=== PATIENT | male | born 1955 | race Caucasian/White ===

== ENCOUNTER 2023-07-04 06:57 | Observation (INO) ==
--- NOTE | 2023-07-04 08:27 | History & Physical Report ---
Date of Service July 04, 2023 Assessment & Plan (1) Wound infection after surgery: Plan: 60-year-old male with cellulitis and likely abscess and old appendectomy incision site. Plan for incision and drainage of abdominal wall abscess Risks of the procedure were discussed to include but not limited to bleeding, infection, prolonged healing, damage surrounding structures, need for future more extensive surgery, recurrence, and the risk of anesthesia History of Present Illness Primary Care Provider: NO PCP 68-year-old male here for incision and drainage of subcutaneous abscess. Patient had an appendectomy in the 90s and has had chronic drainage ever since. Dr. Olivares attempted to remove stitch in the past but was unsuccessful. Drainage resolved. For the past week or so he has had increasing redness and pain from the area. Had some spontaneous drainage a few days ago. He presented to the clinic yesterday where he had moderately significant cellulitis and some minimal purulent drainage from the wound. An ultrasound was performed and showed subcutaneous fluid collection with cellulitis. Allergies Allergy/AdvReac Type Severity Reaction Status Date / Time bee venom protein (honey bee) Allergy Severe . Verified 07/03/23 15:15 UNKNOWN ANESTHESIA Allergy Unknown "LUNGS Uncoded 07/03/23 15:15 DIDN'T WORK." Past Med/Surg History Surgical History (Updated 07/04/23 @ 08:33 by Veronica Rodriguez RN) History of appendectomy Social History Smoking Status: Never smoker Second Hand Exposure: Yes; Do You Dip or Chew Tobacco: No; Tobacco Cessation Education Requested by Patient: No Hx Alcohol Use: Yes Alcohol type: hard liquor Hx Substance Use: No Preferred Language: Bengali Communication Ability: Effective Maritime Officer Required: No Beliefs That Will Affect Care: None Current Living Situation: Spouse Feels Safe at Home: Yes Safety Concerns: Feels Safe At This Time Assistive Devices: None Review of Systems Review of Systems: All systems reviewed & are unremarkable except as noted in HPI & below Physical Exam Constitutional: WD/WN, vitals as above + obese Respiratory: normal respiratory effort, lungs clear to auscultation Cardiovascular: RRR, no murmur, no edema Gastrointestinal (Abdomen): Inspection/Auscultation: + abdominal surgical scar (Cellulitis extending superior laterally from incision. Small opening) Percussion/Palpation: + abdomen tender (Around incision) and abdomen soft; no guarding and abdomen not rigid Results & Data Results & Data Laboratory Results WBC 12 Diagnostic Findings [place], [place] [phone] Ultrasound Report Patient:KATHY MORA Admit Date:07/03/23 MR#:[id number] Address[address] Acct ID:[id number] Address2: Date:1955 [facility] Zip:[place] [address] Age:68 Location:[place] Sex:M Room/Bed: Att Phy:Jeramy Olivares MD,FACS Diagnosis:right abdomen- old appy site Karo Phy:PCP,NO Service Date:07/03/23 Fam Phy: Interpreting Phy:Aiden Taylor MDAdmit Phy: Ordering Phy:Jeramy Olivares MD,FACS cc: Ken Hartley, DO~ ULTRASOUND OF THE ABDOMINAL WALL CLINICAL HISTORY: Drainage from a right lower quadrant incision site. Remote appendectomy. COMPARISON STUDY: Abdominal CT dated 04/05/2011. FINDINGS: Real-time grayscale and color flow sonography of the right lower quadrant abdominal wall is performed at the site of interest. There is nonspecific soft tissue thickening and hyperemia at the site of interest. There is a complex fluid collection suggested along the superior aspect of the incision at the site of erythema and pain. This measures 7.4 x 2.4 x 5.9 centimeter, again with peripheral hyperemia. This is located at approximately 2 cm deep to the dermal surface. It is unclear if this is intra or extraperitoneal. IMPRESSION: 1. Soft tissue thickening and hyperemia is seen at the incision site suggesting cellulitis. 2. There is a complex fluid collection suggested along the superior margin of the incision at the site of erythema and pain. The appearance favors abscess, and it is unclear if this is intra or extraperitoneal. An abdominal CT with oral and IV contrast is recommended for further assessment. PG Care Time/CCT Total # of Minutes Spent Total Time Spent with Patient: Total time spent is greater than 50% in coordination of care (as documented) at patient's floor/unit and/or counseling patient: Coding Level of Care Code 12601 INT INP/OBS CARE 2/55MIN Diagnoses Wound infection after surgery T81.49XA
[2023-07-04] MEDS ORDERED: ceFAZolin 2000MG 2,000 MG/15 ML SYR IV ONE (08:48)
[2023-07-04] MEDS ORDERED: LACTATED RINGER'S 1,000 ML IV SCH (09:00)
[2023-07-04] MEDS ORDERED: BUPIVACAINE 0.5 % 5 MG/1 ML MPF 30ML VIAL ONE (09:40)
[2023-07-04] MEDS ORDERED: ONDANSETRON INJ 2 MG/ML 2 ML VIAL ONE (09:46)
[2023-07-04] MEDS ORDERED: LIDOCAINE 2% 2 ML VIAL/AMP(20MG/ML) INFIL ONE (09:46)
[2023-07-04] MEDS ORDERED: fentaNYL citrate PF 100 MCG/2 ML VIAL ONE ×2 (09:46→10:38)
[2023-07-04] MEDS ORDERED: DEXAMETHASONE SOD INJ 4 MG/ML VIAL ONE (09:46)
[2023-07-04] MEDS ORDERED: MIDAZOLAM HCL 1 MG/ML 2ML VIAL ONE (09:46)
[2023-07-04] MEDS ORDERED: ROCURONIUM BROMIDE 10 MG/ML 5 ML VIAL IV ONE (09:46)
[2023-07-04] MEDS ORDERED: PROPOFOL IV EMULSION 10 MG/ML 20 ML VIAL IV ONE (09:46)
--- NOTE | 2023-07-04 09:47 | Anesthesiology Consultation ---
Date of Service July 04, 2023 Assessment & Plan Chart Review Chart Review: Acceptable Risk for Surgery Consults Requested none History Surgery Operation Date: 07/04/23 09:10 Proposed Procedures p Incision and Drainage Appendectomy Incision - Ken Hartley, , FACS Height/Weight Height: 5 ft 8 in Weight: 103.2 kg Allergies Allergy/AdvReac Type Severity Reaction Status Date / Time bee venom protein (honey bee) Allergy Severe . Verified 07/03/23 15:15 UNKNOWN ANESTHESIA Allergy Unknown "LUNGS Uncoded 07/03/23 15:15 DIDN'T WORK." Medications Active Medications Generic Name Dose Route Start Last Admin Trade Name Freq PRN Reason Stop Dose Admin Lactated Ringer's 1,000 mls @ 0 mls/hr 07/04/23 09:00 07/04/23 08:44 Lr IV 08/03/23 08:59 15 mls/hr .Q0M CHARITY Administration KVO NPO Date Last Intake of Fluids: 07/03/23 Time Last Intake of Fluids: 22:00 Date Last Intake of Solids: 07/03/23 Time Last Intake of Solids: 21:00 Past Surgical History Surgical History (Updated 07/04/23 @ 08:33 by Veronica Rodriguez RN) History of appendectomy Social History Smoking Status: Never smoker Do You Dip or Chew Tobacco: No Hx Alcohol Use: Yes Alcohol type: hard liquor alcohol intake frequency: a few times a month Hx Substance Use: No Physical Exam Vital Signs Last Vital Signs Temp 36.6 C 07/04/23 08:08 Pulse 91 H 07/04/23 08:08 Resp 20 07/04/23 08:08 BP 207/105 H 07/04/23 08:08 Pulse Ox 97 07/04/23 08:08 O2 Del Method Room Air 07/04/23 08:08 Constitutional WD/WN, vitals as above + obese Respiratory normal respiratory effort, lungs clear to auscultation Cardiovascular RRR, no murmur, no edema Gastrointestinal (Abdomen) Inspection/Auscultation: + abdominal surgical scar (Cellulitis extending superio r laterally from incision. Small opening) Percussion/Palpation: + abdomen tender (Around incision) and abdomen soft; no guarding and abdomen not rigid
[2023-07-04] MEDS ORDERED: ATROPINE SULFATE 0.1 MG/ML 10ML SYR IV PRN (09:49)
[2023-07-04] MEDS ORDERED: ePHEDrine sulfate 50 MG/ML AMP IV PRN (09:49)
[2023-07-04] MEDS ORDERED: DexMEDEtomidine HCL IV 100 MCG/ML VIAL IV ONE (10:15)
[2023-07-04] MEDS ORDERED: SUCCINYLCHOLINE CHLORIDE 20 MG/ML 10 ML VIAL IV ONE (10:18)
[2023-07-04] MEDS ORDERED: SUGAMMADEX SODIUM 200 MG/2 ML VIAL IV ONE (10:42)
--- NOTE | 2023-07-04 10:54 | Operative Report ---
PG Post Operative Report Pre & Post Diagnosis Operation Date: 07/04/23 09:10 Pre-Op Diagnosis: Abdominal wall abscess at prior appendectomy scar Postop diagnosis: Abdominal wall abscess a prior appendectomy scar I identified the patient and participated in the time-out.: Yes Procedure Operation Date: 07/04/23 09:10 Actual Procedures p Incision and Drainage abdominal wall abscess at prior appendectomy Incision(Right) - Ken Hartley DO, IKKA Surgeon Ken Hartley DO, KIKA Loom Checker Kory Elliott Estimated Blood Loss 5 Findings Consistent with Post-Op Diagnosis Incision and drainage of abdominal wall soft tissue abscess superior lateral to prior appendectomy incision. Approximately 40 cc of purulent drainage drained. Hemostasis achieved, wound packed. Specimens Wound culture Anesthesia Type General Complications none Disposition Accompanied Patient To Recovery: No Disposition: Recovery Room Indications 68-year-old male with history of prior appendectomy and evaluation for stitch abscess in the past he presented to the clinic yesterday with cellulitis and likely abscess. Ultrasound confirmed presence of abscess. Plan for incision and drainage of abdominal wall abscess. The risks of the procedure were discussed, all questions were answered, and the patient agreed to proceed with surgery as planned. Description of Procedure The patient was properly identified, consented, and taken to the operating room where he was placed in the supine position. General tracheal anesthesia was induced. SCDs and a safety belt were placed. Preoperative antibiotics were administered. The patient's abdomen was prepped and draped in the standard sterile fashion. Surgical timeout was performed and all parties were in agreement that this was the correct patient and procedure to be performed and we continued as planned. Local anesthetic was injected along the skin incision. A elliptical incision was made starting at the lateral portion of the incision where there was a small opening and some drainage and extended superior laterally. This was deepened down through the subcutaneous tissue with electrocautery. The abscess cavity was entered and approximately 40 cc of purulent drainage was expressed. This was sent for culture. There is significant cellulitis surrounding this area with some inflamed fat, but no other fluid collections were identified. The wound was irrigated and hemostasis achieved. The wound was packed with saline soaked Kerlix gauze. Dressing was placed over the incision. The patient was extubated in the operating room and taken to the PACU where he recovered without apparent incident. All sponge, instrument and needle counts were correct at the conclusion of the procedure. The patient tolerated the procedure well. The nurse practitioner was present and scrubbed for the entire the case. She was critical in positioning the patient, prepping and draping, retraction and exposure, placement of the dressings. I attest to the content of the Intraoperative Record and any orders documented therein. Any exceptions are noted below.
[2023-07-04] MEDS: fentaNYL citrate PF 100 MCG/2 ML VIAL IV PRN ×3 (11:18→11:28)
--- NOTE | 2023-07-04 12:03 | Electrocardiogram Report ---
Test Reason : Blood Pressure : / mmHG Vent. Rate : 085 BPM Atrial Rate : 085 BPM P-R Int : 146 ms QRS Dur : 096 ms QT Int : 390 ms P-R-T Axes : 051 041 058 degrees QTc Int : 464 ms Normal sinus rhythm Normal ECG When compared with ECG of 10-JUN-2010 06:20, Borderline criteria for Inferior infarct are no longer Present T wave inversion no longer evident in Inferior leads Confirmed by Earle Armstrong ([id number]) on 07/04/2023 12:03:16 PM Referred By: Ken Hartley Confirmed By:Neville Armstrong
--- NOTE | 2023-07-04 12:13 | Anesthesiology Progress Note ---
Date of Service July 04, 2023 Anesthesia Post Procedure Vital Signs Vital Signs: Temp Pulse Pulse Resp BP Pulse Ox O2 Del Method 07/04/23 11:45 36.2 C L 72 15 161/91 H 96 Nasal Cannula 07/04/23 11:35 76 15 176/100 H 96 Nasal Cannula 07/04/23 11:25 79 17 156/91 H 95 Nasal Cannula 07/04/23 11:15 85 16 151/90 H 99 Oxymask 07/04/23 11:05 36.0 C L 86 18 160/97 H 98 Oxymask 07/04/23 08:08 36.6 C 91 H 20 207/105 H 97 Room Air O2 Flow Rate 07/04/23 11:45 2 07/04/23 11:35 2 07/04/23 11:25 2 07/04/23 11:15 5 07/04/23 11:05 5 07/04/23 08:08 Pain Intensity Right Lower Abdomen: Pain Intensity: 6 Transfer of Care Handoff Completed per policy Notes Mental Status: alert / awake / arousable Patient Amnestic to Procedure: Yes Nausea / Vomiting: adequately controlled Pain: adequately controlled Airway Patency, RR, SpO2: stable & adequate BP & HR: stable & adequate Hydration State: stable & adequate Anesthetic Complications: no major complications apparent and Pt Satisfied with anesthetic care
[2023-07-04] MEDS ORDERED: MoRPHine SULFATE 4 MG/ML 1 ML CARP\\VIAL IV PRN (12:19)
[2023-07-04] MEDS ORDERED: ONDANSETRON INJ 2 MG/ML 2 ML VIAL IV PRN (12:19)
[2023-07-04] MEDS ORDERED: oxyCODONE/ACETAMINOPHEN 5mg/325mg TAB PO PRN ×2 (12:19)
[2023-07-04] MEDS ORDERED: MoRPHine SULFATE 2 MG/ML CARP IV PRN (12:19)
[2023-07-04] MEDS ORDERED: ACETAMINOPHEN 325 MG TAB PO PRN (12:19)
[2023-07-04] MEDS ORDERED: PIPER/TAZO 4.5g in D5W MINI-B 100 ML IV ONE (12:30)
[2023-07-04] MEDS: PIPERACILLIN/TAZOBACTAM 4.5 GM in DEXTROSE 5% MINI-B 100 ML IV SCH (17:20)
[2023-07-04] MEDS ORDERED: hydrALAZINE 10 MG TAB PO STA (22:40)
--- NOTE | 2023-07-04 22:45 | Communication Note ---
Date of Service: July 04, 2023 I was called by RN at approximately 10:23 PM on 07/04/2023 stating the patient had an elevated blood pressure. On the patient's most recent reading his blood pressure is noted to be 189/101. RN notes that patient's blood pressure has been persistently elevated throughout the day. I reported the patient's bedside within 10 minutes of receiving this call. I discussed with the patient and he specifically denies any headache, visual changes, chest pain, or shortness of breath. I discussed with the patient his elevated blood pressure and he reports that his blood pressure has been elevated for a "long time.". Patient says that he previously followed with Dr. Goldstein for primary care but he believes that this physician has retired. He is inte rested in establishing care with an alternative physician and the [facility] group. I did discuss with the patient that his blood pressure is elevated to the point where I believe treatment is indicated. I have suggested the patient we start him on pharmacologic treatment for this condition. He is in agreement. I discussed with the hospitalist for [facility] physician group and requested a consultation to help with the patient's hypertension management. They have suggested we initiate hydralazine 10 mg p.o. now (they note that oral medicines would be acceptable as the patient is asymptomatic). They will see the patient in consultation and make additional recommendations about what dose and medication to send patient home on.
--- NOTE | 2023-07-04 23:07 | Hospitalist Consultation ---
Date of Consultation July 04, 2023 Assessment & Plan (1) Hypertensive urgency: 68 yo male with PMHx appendectomy. Earlier today underwent I&D of abdominal wall abscess at prior appendectomy incision. Hospital team consulted for elevated blood pressures. #Hypertensive Urgency -consulted with BP reading of 189/101 following surgery. Previous h/o HTN but not on medication for many years. Asymptomatic. -administered po hydralazine 10mg x1 - will cont. to monitor BP overnight -will start losartan 50mg qam going forward - kidney function wnl -pt should establish with PCP for further management- recommend bmp check in 2-4 wks after starting ARB #Post op #Wound Infection -s/p I&D of abdominal wall abscess at prior appendectomy incision. Management per gen surg. Cont. zosyn. Pain control. #H/o NC w/stent -previously on plavix/asa. He has not been on these for many years. Recommend PCP f/u after discharge. #H/o HLD -previously on atorvastatin. He did have myalgias with this medication so stopped taking it. Recommend PCP f/u after discharge. -check lipids DVT ppx: SCDs s/p surgery FEN/GI: regular Code Status: full Dispo: med surg Thank you for allowing us to participate in this patient's care. Hospital team will continue to follow. (2) Wound infection after surgery: (3) History of heart artery stent: (4) HLD (hyperlipidemia): History of Present Illness Reason for Consultation: elevated BP Attending Physician: Ken Hartley DO, FACS History of Present Illness 68 yo male with PMHx NC s/p stent, HLD, HTN, and appendectomy. Earlier today underwent I&D of abdominal wall abscess at prior appendectomy incision. Hospital team consulted for elevated blood pressures. Patient states he is doing well after surgery and is asymptomatic at this time. He states that his blood pressure typically does run high as he used to be on blood pressure medication many years ago. He also used to be on few other medications again many years ago for his comorbidities however has not had a PCP for quite some time. He is currently on no medications at home. His and mother established with Dr. Paul Gunderson. He is looking to establish soon. He is amenable to starting daily blood pressure medication following discharge from the hospital. Allergies Allergy/AdvReac Type Severity Reaction Status Date / Time bee venom protein (honey bee) Allergy Severe . Verified 07/04/23 17:46 UNKNOWN ANESTHESIA Allergy Unknown "LUNGS Uncoded 07/04/23 17:46 DIDN'T WORK." Home Medications Medication Instructions Recorded Confirmed Type No Known Home Medications 07/04/23 07/04/23 History Patient History Surgical History (Updated 07/05/23 @ 01:25 by Darryl Anne DO) History of appendectomy History of incision and drainage (07/04/23) Incision and Drainage abdominal wall abscess at prior appendectomy Incision(Right) - Ken Hartley DO, FACS Social History Smoking Status: Never smoker Second Hand Exposure: Yes; Do You Dip or Chew Tobacco: No; Tobacco Cessation Education Requested by Patient: No Hx Alcohol Use: Yes Alcohol type: hard liquor Hx Substance Use: No Preferred Language: Ghanaian Communication Ability: Effective Property Administrator Required: No Beliefs That Will Affect Care: None Current Living Situation: Spouse Other Information That Helps Us Care for You: No Feels Safe at Home: Yes Safety Concerns: Feels Safe At This Time Assistive Devices: Denture - Upper, Glasses and Hearing Aid - Bilateral Assistive Devices Comment: hearing aids not here, does not wear them often Review of Systems Review of Systems: All systems reviewed & are unremarkable except as noted in HPI & below Physical Exam Physical Exam: Constitutional: in no acute distress, pleasant and normal affect, intact memory. AOx3. Vitals as above. HEENT: No scleral injection or discharge.Moist mucous membranes. Neck: Supple without lymphadenopathy or thyromegaly. Trachea midline. Lungs: Clear to auscultation bilaterally with good effort. No wheezes/rales/r honchi. Cardiac: Regular rate and rhythm. No murmurs.No lower extremity edema. 2+ distal peripheral pulses. Abdomen: Bowel sounds present. Soft, nontender, and nondistended.No guarding. MSK: No cyanosis or clubbing. Extremities motor strength 5/5. Skin: Bandages present over surgical site. Neurologic: no focal deficits Results & Data Results & Data Vital Signs (Past 12 Hours) Vital Signs Temp Pulse Pulse Resp BP BP Pulse Ox 07/04/23 21:48 189/101 H 07/04/23 19:24 36.7 C 86 18 192/91 H 94 07/04/23 15:05 36.7 C 79 20 191/100 H 96 07/04/23 12:42 36.4 C L 72 18 163/83 H 98 07/04/23 13:10 36.2 C L 76 18 177/98 H 97 07/04/23 12:23 07/04/23 12:10 36.3 C L 77 18 165/93 H 97 07/04/23 11:45 36.2 C L 72 15 161/91 H 96 07/04/23 11:35 76 15 176/100 H 96 07/04/23 11:25 79 17 156/91 H 95 07/04/23 11:15 85 16 151/90 H 99 O2 Del Method O2 Flow Rate 07/04/23 21:48 07/04/23 19:24 Room Air 07/04/23 15:05 Room Air 07/04/23 12:42 Nasal Cannula 2 07/04/23 13:10 Nasal Cannula 3 07/04/23 12:23 Nasal Cannula 3 07/04/23 12:10 Nasal Cannula 3 07/04/23 11:45 Nasal Cannula 2 07/04/23 11:35 Nasal Cannula 2 07/04/23 11:25 Nasal Cannula 2 07/04/23 11:15 Oxymask 5 Resident Activity Tracking Resident Involvement: Resident Care Provided Care Provided: Adult Hospital Medicine
[2023-07-05] MEDS: PIPERACILLIN/TAZOBACTAM 4.5 GM in DEXTROSE 5% MINI-B 100 ML IV SCH ×2 (01:29→10:06)
[2023-07-05 07:05] LABS: Basophils # (auto) 0.04 K/uL (0.00-0.20); Basophils % (auto) 0.3 %; Eosinophils # (auto) 0.12 K/uL (0.00-0.50); Hematocrit (blood only) 42.3 % (42.0-52.0); Hemoglobin 14.1 g/dl (14.0-18.0); Immature Granulocytes # (auto) 0.06 K/uL (0.01-0.20); Immature Granulocytes % (auto) 0.5 %; Lymphocytes # (auto) 2.97 K/uL (1.20-3.40); Lymphocytes % (auto) 25.1 %; Mean Corpuscular Hemoglobin 30.3 pg (25.0-34.0); Mean Corpuscular Hgb Conc 33.3 g/dL (32.0-36.0); Mean Corpuscular Volume 90.8 fL (80.0-100.0); Mean Platelet Volume 10.3 fL (9.4-12.4); Monocytes # (auto) 0.96 K/uL (0.11-0.59); Monocytes % (auto) 8.1 %; Neutrophils # (auto) 7.68 K/uL (1.40-6.50); Platelet Count 260 K/uL (130-400); RDW Coefficient of Variation 13.2 % (11.5-14.5); RDW Standard Deviation 43.9 fL (36.4-46.3); Red Blood Count 4.66 M/uL (4.70-6.10); White Blood Count 11.83 K/ul (4.8-10.8)
[2023-07-05 07:19] LABS: BUN Creatinine Ratio 15.1 (10-20); Calcium 9.4 mg/dl (8.6-10.3); Chol HDL Ratio 4.5 (0-5); Creatinine Clr Calc Pharmacy 95.7 ml/min; Est GFR (African American) 103.3 ml/min; Est GFR (Non-African American) 89.1 ml/min
--- NOTE | 2023-07-05 08:23 | Hospitalist Progress Note ---
Date of Service July 05, 2023 Assessment & Plan (1) Hypertensive urgency: Plan: 68 yo male with PMHx appendectomy. Earlier today underwent I&D of abdominal wall abscess at prior appendectomy incision. Hospital team consulted for elevated blood pressures. #Hypertensive Urgency Consulted with BP reading of 189/101 following surgery. Previous h/o HTN but not on medication for many years. Asymptomatic. Administered po hydralazine 10mg x1, started losartan 50mg this morning for BP 177/92 Changed diet to AHA, rec low salt diet at discharge Given patient w/ hx OR and stent, started metoprolol tartrate 25mg BID while inpatient, can change to succinate at discharge vs having PCP change in follow up. Rec to take additional metoprolol if significant elevations on home BP check but otherwise would hold off losartan for now to prevent hypotension but suspect given long standing HTN may require 2 agents eventually Would also start daily baby aspirin at dc. CM to arrange f/u with PCP for ongoing management with Dr Miller in [place] per patient request (2) Wound infection after surgery: Plan: #Post op wound infection from appy done in , ongoing drainage on/off since that time POD#1 s/p I&D of abdominal wall abscess at prior appendectomy incision. Management per gen surg. GS from OR cx w/ gram positive cocci, cx pending IV ZOsyn WBC trending down, afebrile Hgb stable on repeat Pain control/bowel regimen/PT/OT per primary service DVT proph: SCDs ordered Dispo per primary if wanting to dc today on empiric coverage vs finalized cultures (3) History of heart artery stent: Plan: #H/o OR w/stent -previously on plavix/asa. Reported likely in early (prior to his father passing) He has not been on these for many years. Metoprolol initiated as above, recs for baby aspirin when ok w/ surgery.Statin discussion deferred to f/u as below. A1c pending w/ AM labs --> 6.4 --> rec adjustment of diet/starting metformin in follow up CM arranging PCP f/u as above (4) HLD (hyperlipidemia): Plan: #H/o HLD -previously on atorvastatin. He did have myalgias with this medication so stopped taking it. Recommend PCP f/u after discharge. -check lipids --> Chol 203, LDL 138, HLD 45, TRG 101. Likely benefit from starting statin but given above will defer ongoing discussion to PCP about starting. Encourage AHA diet at d/c --> Patient declining statin due to myalgias in the past. Discussed possible zetia w/ PCP vs taking statin at night. He would like to defer further discussions to follow up Plan Thank you for allowing hospitalist service to participate in the care of Mr Camarillo. Hospitalist service will follow along in am if remaining overnight/monitor BPs/adjustment as needed. Please call with any questions/concerns. Admission and Anticipated Discharge Date Admission Date: July 04, 2023 Supervising Physician Co-Signing Physician Notes The patient was not seen by me. The chart was reviewed. Case discussed with BRYANT Nolasco. Agree with assessment and plan Subjective Eval this morning, doing great. BP elevated but no CP/SOB. Prior OR believes in earlier , discussed PCP f/u being arranged and started metoprolol. Rec'd once surgery ok would be on baby aspirin. Labs stable, cxs pending. He reports the worsened pain/drainage after lifting 50lb bag of rice 10 weeks ago, worsened over past week. Pain much improved/resolved. Slightly tender around incision, RN to change dressing this morning. He is inquiring about dc today as he is bored. Discussed would let that up to primary but suspect may want to finalize cultures prior. He is agreeable to stay if needed but happy if able to be discharged today. Messaged primary of such. Physical Exam Physical Exam: Constitutional: WN/WD obese male sitting up in bed, NAD HEENT head atraumatic, normocephalic, mmm, trachea midline Resp; CTA, no w/c/r, on room air CV: RRR, no significant mrg, no calf edema GI: +BS throughout, dressing to RLQ c/d/i, incision noted, some purulent drainage on 4x4. slightly tender appropriately around incision but no guarding/rigidity no [place] MSK/Neuro: no focal deficit, no slurred speech, strength equal bilaterally Psych: AOx3, cooperative and pleasant with exam Results & Data Results & Data Vital Signs (Past 12 Hours) Vital Signs Temp Pulse Pulse Resp BP BP Pulse Ox 07/05/23 07:50 36.8 C 86 20 177/92 H 96 07/05/23 05:00 36.9 C 76 18 182/117 H 96 07/05/23 01:34 36.9 C 83 17 186/101 H 175/100 H 95 07/04/23 21:48 189/101 H O2 Del Method 07/05/23 07:50 Room Air 07/05/23 05:00 Room Air 07/05/23 01:34 Room Air 07/04/23 21:48 Laboratory Results 07/05/23 Range/Units 06:30 WBC 11.83 H (4.8-10.8) K/ul RBC 4.66 L (4.70-6.10) M/uL Hgb 14.1 (14.0-18.0) g/dl Hct 42.3 (42.0-52.0) % MCV 90.8 (80.0-100.0) fL MCH 30.3 (25.0-34.0) pg MCHC 33.3 (32.0-36.0) g/dL RDW Std Deviation 43.9 (36.4-46.3) fL RDW Coeff of Arnulfo 13.2 (11.5-14.5) % Plt Count 260 (130-400) K/uL MPV 10.3 (9.4-12.4) fL Immature Gran % (Auto) 0.5 % Neut % (Auto) 65.0 % Lymph % (Auto) 25.1 % [place] % (Auto) 8.1 % Eos % (Auto) 1.0 % Baso % (Auto) 0.3 % Neut # (Auto) 7.68 H (1.40-6.50) K/uL Lymph # (Auto) 2.97 (1.20-3.40) K/uL [place] # (Auto) 0.96 H (0.11-0.59) K/uL Eos # (Auto) 0.12 (0.00-0.50) K/uL Baso # (Auto) 0.04 (0.00-0.20) K/uL Immature Gran # (Auto) 0.06 (0.01-0.20) K/uL Sodium 138 (136-145) mmol/L Potassium 4.0 (3.5-5.1) mmol/L Chloride 101 (98-107) mmol/L Carbon Dioxide 31 (21-32) mmol/L Anion Gap 6 (3-11) BUN 13 (6-23) mg/dl Creatinine 0.86 (0.6-1.4) mg/dl Est Cr Clr Drug Dosing 95.7 ml/min Est GFR ( Amer) 103.3 ml/min Est GFR (Non-Af Amer) 89.1 ml/min BUN/Creatinine Ratio 15.1 (10-20) Glucose 116 H (70-99(Fasting)) mg/dl Estimat Average Glucose 137 mg/dl Hemoglobin A1c 6.4 H (4.5-5.6) % Calcium 9.4 (8.6-10.3) mg/dl Triglycerides 101 (0-150) mg/dl Cholesterol 203 H (0-200) mg/dl LDL Cholesterol, Calc 138 mg/dl VLDL Cholesterol, Calc 20 (0-30) mg/dl HDL Cholesterol 45 mg/dl Cholesterol/HDL Ratio 4.5 (0-5) PG Care Time/CCT Total # of Minutes Spent Total Time Spent with Patient: Total time spent is greater than 50% in coordination of care (as documented) at patient's floor/unit and/or counseling patient: Coding Level of Care Code 29474 SUB INP/OBS CARE 3/50MIN Diagnoses Hypertensive urgency I16.0 Wound infection after surgery T81.49XA History of heart artery stent Z95.5 HLD (hyperlipidemia) E78.5
[2023-07-05] MEDS ORDERED: LOSARTAN POTASSIUM 50 MG TAB PO SCH (09:00)
--- NOTE | 2023-07-05 09:07 | Surgery Progress Note ---
Date of Service July 05, 2023 Assessment & Plan (1) Wound infection after surgery: Plan: POD 1 incision and drainage abdominal abscess Area packed with Kerlix and covered with gauze and ABD, Nayla pain Patient continues to have elevated BP asymptomatic , appreciate hospitalist assist. Started on Losartan 50mg po daily. Patient verbalized understanding of continuing medication on D/C and needed to find a PCP as an OP. Will Need PO antibiotics on D/C WBC 11 (12) Admission and Anticipated Discharge Date Admission Date: July 04, 2023 Supervising Physician Co-Signing Physician Notes Patient seen and examined, labs reviewed, agree with above. Status post I&D, feeling much better, actually feels better than he did weeks. He is scheduled to be discharged after his next dose of antibiotics. Cellulitis improved, dressing not completely removed. Cultures pending. Will send home on 1 week antibiotics follow-up in clinic in 2 to 3 weeks. Wound care referral. Subjective patient reports he is feeling great Denies pain, N/V, SOB, fever. chills, CP, light headedness, Dizziness, visual changes, GALEANO Tolerating reg diet Review of Systems Constitutional: no fever, no chills and no sweats Respiratory: no dyspnea Cardiovascular: no chest pain, no lightheadedness and no syncope Gastrointestinal: no abdominal pain, no nausea and no vomiting Genitourinary: no problem reported Physical Exam Physical Exam: alert oriented pleasant Constitutional: cooperative and comfortable; no acute distress Respiratory: normal respiratory effort and able to speak in complete sentences; no respiratory distress Cardiovascular: Rate/Rhythm: regular rate Gastrointestinal (Abdomen): Inspection/Auscultation: + abdominal surgical incision Percussion/Palpation: abdomen soft; no guarding Results & Data Vital Signs (Past 12 Hours) Vital Signs Temp Pulse Pulse Resp BP BP Pulse Ox 07/05/23 07:50 98.2 F 86 20 177/92 H 96 07/05/23 05:00 98.4 F 76 18 182/117 H 96 07/05/23 01:34 98.4 F 83 17 186/101 H 175/100 H 95 07/04/23 21:48 189/101 H O2 Del Method 07/05/23 07:50 Room Air 07/05/23 05:00 Room Air 07/05/23 01:34 Room Air 07/04/23 21:48 PG Care Time/CCT Total # of Minutes Spent Total Time Spent with Patient: Total time spent is greater than 50% in coordination of care (as documented) at patient's floor/unit and/or counseling patient: Coding Level of Care Code 40307 Post Operative Follow-Up Diagnoses Wound infection after surgery T81.49XA
[2023-07-05] MEDS ORDERED: METOPROLOL TARTRATE 25 MG TAB PO SCH (09:15)
[2023-07-05 09:34] LABS: Estimated Average Glucose 137 mg/dl; Hemoglobin A1C 6.4 % (4.5-5.6)
--- NOTE | 2023-07-06 08:07 | Discharge Summary ---
Date of Service July 05, 2023 Admission HPI Per Admitting Provider 68-year-old male here for incision and drainage of subcutaneous abscess. Patient had an appendectomy in the 90s and has had chronic drainage ever since. Dr. Olivares attempted to remove stitch in the past but was unsuccessful. Drainage resolved. For the past week or so he has had increasing redness and pain from the area. Had some spontaneous drainage a few days ago. He presented to the clinic yesterday where he had moderately significant cellulitis and some minimal purulent drainage from the wound. An ultrasound was performed and showed subcutaneous fluid collection with cellulitis. Principal Diagnosis Abdominal wall abscess Discharge Exam alert oriented pleasant Constitutional cooperative and comfortable; no acute distress Respiratory normal respiratory effort and able to speak in complete sentences; no respiratory distress Cardiovascular Rate/Rhythm: regular rate Gastrointestinal (Abdomen) Inspection/Auscultation: + abdominal surgical incision Percussion/Palpation: abdomen soft; no guarding Discharge Data Allergies Allergy/AdvReac Type Severity Reaction Status Date / Time bee venom protein (honey bee) Allergy Severe . Verified 07/04/23 17:46 UNKNOWN ANESTHESIA Allergy Unknown "LUNGS Uncoded 07/04/23 17:46 DIDN'T WORK." Consultations 07/04/23 22:42 Consult Hospitalist Routine Procedures Performed Operation Date: 07/04/23 09:10 Actual Procedures p Incision and Drainage Appendectomy Incision(Right) - Ken Medina DO, FACS Hospital Course (1) Wound infection after surgery: Patient underwent an Incision and drainage/debridement of right post operative open appendectomy scar. He was admitted to the hospital over night for observation and IV antibiotics. POD 1 he reports mild discomfort from surgical area, had no taken any pain medication. Hospitalist were consulted for asymptomatic elevated BPs. Patient has a history of HLD, and HTN however has not seen a PCP in years 2/2 his PCP retiring. He was started on Losartan and discharged on Metoprolol for HTN. He and his were shown how to pack his wound and do wet to dry dressing BID. He is expecting a call from the wound care center on discharge. He was given prescriptions for PO analgesics, antihypertensives, and a 2 weeks course of antibiotics. He verbalized return precautions, was tolerating a regular diet, and denied pain. He was discharged in stable condition, instructed to call a PCP upon discharge and follow up with Dr. medina in the office in 2 weeks. Total Time Total Time Spent Total Time Spent (In Minutes): 30 Discharge Plan Discharge Items Patient Disposition: Home - Self-Care Reason For Visit: Wound Infection, S/P Appendecomty 17 Years Ago Discharge Diagnosis: abdominal wound abscess Activity: As commented below Lifting: No more than 25 pounds Bathing Comment: May shower no, baths or pools for 2 weeks Exercise/Sports: Wait until after follow-up appointment Non-emergency contact: Surgeon Call non-emergency contact if: you have any medication questions, your symptoms worsen, your pain is worsening, your temperature is above 101.5, your wound has increased redness, your wound has increased drainage and your wound pain has increased Follow-up/Referrals: Ken Mednia DO, FACS [Physician] - (call office for a follow up appointment in 2 weeks ) PCPJANET [Primary Care Provider] - Diet: Regular Addtl Attending Provider Instructions: You can keep wet to dry dressing gauze and tape over your incisional area as instructed. change this twice daily AM/ PM Take ALL of your antibiotic as directed even if you are feeling better. Keep your follow up appointment with your surgeon. Keep your appointment with the wound care center , They will call you with an appointment time,. You need to follow up with your PCP outpatient for your elevated Blood pressures, if you do not have a primary care doctor then you can call [facility] outpatient offices. I listed two offices for you: Family Practice * [facility] * [facility] [id number] * [phone] Internal Medicine [address] [place] [address] [id number] You were prescribed a medication for your high blood pressure, please continue to take this daily It is recommended that you have your labs rechecked as an outpatient your PCP can order these. Continue metoprolol tartrate 25mg twice daily check your BPs at home and if consistently elevated then can take additional dose of the metoprolol Continue on aspirin 81mg daily Pending Studies at Discharge: Yes Studies:: surgical pathology Stand-Alone Forms: My [facility] Medications and DC Order Prescriptions: New oxycodone-acetaminophen 5-325 mg Tablet 1 tab PO Q4H MDD 6 PRN (Reason: pain) Qty: 7 0RF Rx Instructions: take one tab my mouth every 4 hours as needed for pain metoprolol tartrate 25 mg Tablet 25 mg PO BID 30 Days Qty: 60 0RF Rx Instructions: taken one tablet every 12 hours for high blood pressure. You need to make a follow up with your PCP. amoxicillin-pot clavulanate 875-125 mg tablet 1 tab PO Q12H 10 Days Qty: 20 0RF Rx Instructions: Take one tablet by mouth every 12 hours for the next 10 days Discharge Orders: Discharge Order (Routine); Ordered 07/05/23 Ordered By: Lang Colon/Other Patient Handouts: Prediabetes, Controlling High Blood Pressure, 5 Steps for Eating Healthier Admission Data Admit Date/Time: 07/04/23 10:56 Attending Provider: Ken Medina Admit Provider: Ken Medina Primary Care Provider: PCP,NO Other Providers: Mindi Bernstein Other Interventions: Discharge Summary Assessment (RN) Last Done: 07/05/23 13:44 Coding Level of Care Code 29072 IN/OBS DISCH 30 MIN/LESS Diagnoses Wound infection after surgery T81.49XA
--- NOTE | 2023-07-11 10:11 | Coding Query ---
A supporting diagnosis is required for the test/procedure performed on this patient in order for us to be reimbursed by the patient's insurance. Please provide a supporting diagnosis for the following test/procedure listed below next to the test name along with your signature. *If there is no additional diagnosis for this patient that would support the following test/procedure please document that below next to the test/procedure. Test(s)/Procedure(s) that require a supporting diagnosis: * 77893 HEMOGLOBIN A1C DIAGNOSIS: CAD, prediabetes DATE OF SERVICE: 07/05/23 HgB A1C ordered because patient has a diagnosis of pre-diabetes. Ordered to assess recent blood sugars. Important because undiagnosed/untreated or poorly controlled diabetes can worsen infection and interfere with wound healing. Risk stratification Provider Signature: Mindi Bernstein Date: 07/12/23 Provider Signature: Darryl Anne Date: __07/11/23 Thank you Jaziel [facility] Information Management Once completed, please kindly fax back to [phone] For questions please call [phone] [facility]
== END 2023-07-05 14:52 | disposition home or self-care (01) ==
LOC: ASU 06:57 → 3E 06:57
DX: I25.10 Atherosclerotic heart disease of native coronary artery without angina pectoris; R73.03 Prediabetes; Z91.030 Bee allergy status; L02.211 Cutaneous abscess of abdominal wall; T81.49XA Infection following a procedure, other surgical site, initial encounter